=== PATIENT | female | born 1995 | race Caucasian/White ===

== ENCOUNTER → 2019-03-19 09:27 | Outpatient (CLI) | payer OTHER, SELFPAY ==
[2019-03-19 09:22] VITALS: BMI 28.1
--- NOTE | 2019-03-19 09:27 | RAD_ITS ---
STUDY: X-RAY - LEFT SHOULDER REASON FOR EXAM: Chronic shoulder pain. TECHNIQUE: 3 view(s) of the shoulder. COMPARISON: None. FINDINGS: Normal glenohumeral articulation. There is mild elevation of the distal clavicle, possibly secondary to remote acromioclavicular separation. Normal acromion. Normal humeral head and visualized proximal humerus. The soft tissue structures are unremarkable. Normal visualized pulmonary apex. RAD/Shoulder min 2 Views IMPRESSION: Mild elevation of the distal clavicle, possibly from remote acromioclavicular separation. Electronically Signed: Colin Villarreal MD at 10:41 EST Tel , Service support ,
== END ==
PROVIDERS: Family Provider Family Medicine; PCP Family Medicine; Referring Provider Orthopaedic Surgery; Visit Provider Orthopaedic Surgery
DX: M25.512 Pain in left shoulder (principal)
CPT/HCPCS: 73030

== ENCOUNTER → 2019-04-08 11:28 | Outpatient (CLI) | payer OTHER, SELFPAY ==
[2019-03-19 09:22] VITALS: BMI 28.1
--- NOTE | 2019-04-08 11:31 | RAD_ITS ---
CLINICAL HISTORY: Female, 23 years old. Left shoulder instability. PROCEDURE: ARTHROGRAM - LEFT SHOULDER CONSENT: The procedure as well as the benefits and possible complications were explained to the patient. Informed consent was obtained. FLUOROSCOPY TIME (if supplied): (35 seconds) minutes/seconds Injection Information: 10 cc of dilute MRI contrast. Number of images obtained: 3 TECHNIQUE: (All elements of maximal sterile barrier technique followed, including US elements as applicable) The patient was in the supine position. The overlying skin was prepped and draped in usual sterile fashion. Following local anesthetic application and under direct fluoroscopic guidance, a 22-gauge spinal needle was placed into the shoulder joint. 2 cc of Isovue 300 was injected for confirmation. Following this, 10 cc of dilute MRI contrast was injected. The patient tolerated the procedure well. RAD/Arthrogram Shoulder w/ MRI IMPRESSION: Successful intra-articular injection of MR contrast. Electronically Signed: Vijay Mcginnis, at 13:05 EST , Service support ,
--- NOTE | 2019-04-08 11:53 | MRI_ITS ---
STUDY: MR LEFT SHOULDER ARTHROGRAPHY REASON FOR EXAM: Shoulder pain and instability since May, no specific injury. TECHNIQUE: Standardized fat and water weighted pulse sequences were obtained in all 3 orthogonal planes after intra-articular instillation of dilute gadolinium. COMPARISON: Radiographs 03/19/2019. FINDINGS: There is a small low-grade partial thickness tear of the articular surface of the distal supraspinatus tendon (T1 coronal images 11, 12) measuring 0.6 cm in length. Normal infraspinatus tendon. Normal subscapularis tendon. Normal teres minor tendon. Normal supraspinatus muscle. Normal infraspinatus muscle. Normal subscapularis muscle. Normal teres minor muscle. Normal glenohumeral articulation. Normal humeral head and visualized proximal humerus. There is a small linear band of signal in the superior labrum extending into the biceps labral anchor (T1 coronal images 10, 11), either a sublabral recess or SLAP lesion. Normal intracapsular long biceps tendon. Normal anterior inferior labrum. Normal capsulo- ligamentous complex. Normal rotator interval. Normal acromioclavicular articulation. Normal coracoclavicular ligaments. There is a Type II morphology (curved), with a neutral orientation. There is no subacromial-subdeltoid bursal fluid. Normal visualized coracohumeral and coracoacromial ligaments. Normal deltoid muscle. Normal trapezius muscle. MRI/Upper Ext Jt Only W/Contrast IMPRESSION: Small low-grade partial thickness tear of the supraspinatus tendon. Small signal alteration of the superior labrum, either a sublabral recess or SLAP lesion. Electronically Signed: Colin Villarreal MD at 13:49 EST Tel , Service support ,
== END ==
PROVIDERS: Family Provider Family Medicine; PCP Family Medicine; Referring Provider Orthopaedic Surgery; Visit Provider Orthopaedic Surgery
DX: M25.312 Other instability, left shoulder (principal); S43.432A Superior glenoid labrum lesion of left shoulder, initial encounter
CPT/HCPCS: 23350; 73222; 77002; A9575; Q9967

== ENCOUNTER 2019-09-11 05:52 | Day surgery (SDC) | payer OTHER, SELFPAY ==
[2019-06-18 08:13] VITALS: BMI 28.1
[2019-09-03 08:38] VITALS: BMI 28.1
--- NOTE | 2019-09-03 10:12 | HP_ITS ---
Insert H&P no changes I have re-examined the patient. There are no clinical changes since date of exam. Intake Vital Signs 09/03/19 BMI 28.1 Intake Visit Reasons: left shoulder Is patient in pain?: Yes Allergies almond oil Allergy (Verified 03/19/19 09:22) Rash amoxicillin Allergy (Verified 03/19/19 09:22) Rash diphenhydramine HCl [From Benadryl] Allergy (Verified 03/19/19 09:22) Rash Medications NK 09/03/19 [History Confirmed 09/03/19] Is last menstrual period known: Yes Post menopausal: No Patient : No PFSH Social History (Updated 09/03/19 @ 10:[address] Safia Soliz, ) Smoking Status: Never smoker HPI left shoulder: Surgical H&P: Yes Details: Parts of this documentation were recorded by a scribe, this documentation accurately reflects the service provided and the decisions made by me, Dr. Safia Soliz DO 09/03/19 0824. NORMA ROBISON is a 23 year old F here today for F/U on left shoulder. Patient is here today to disscuss her surgery and sign surgery consent since she has failed steroid injection and she has failed PT. Patient coninues to have anterior shoulder pain and weakness with her ROM. Denies numbness, tingling or other associated symptoms. Patient has been off her control. ROS Ubaldo Reports joint pain, Reports limited joint movement, Reports stiffness Skin/Breast Reports system reviewed and no additional complaints, except as docu Neuro Yes system reviewed and no additional complaints, except as docu Ortho Exam Left Shoulder Contralateral Normal: Yes Testing: Yes Hawkin's, Yes Neer's, Yes Speed's, Yes TTP Biceps, Yes Clifford Internal Rotation: L1 Assessment & Plan Problems 1. Superior glenoid labrum lesion of left shoulder, subsequent encounter S43.432D 2. Strain of muscle(s) and tendon(s) of the rotator cuff of left shoulder, subsequent encounter S46.012D Plan Patient educated that since she has failed PT and steroid injection then the next treatment option would be surgery for the SLAP tear from the biceps and partial articular sided rc tear. Patient educated that if her labral tear is to the biceps then she can have a biceps tenotomy vs tenodesis. Patient wishes for the biceps to be moved vs cut. This will be a left shoulder arthroscopy possible RTC repair, subacromial decompression, acromioplasty, open biceps tenodesis and repair as indicated. Patient wishes to proceed with surgery, is on the surgery schedule for 09/11/2019. Reviewed the pre-operative plans with the patient. Risks and benefits of the procedure were fully explained, including but not limited to infection, neurovascular injury, continued pain, arthritis, stiffness, need for further surgery, re-injury, DVT, PE, general risks of anesthesia, and loss of limb or life. The patient understands all the risks and does wish to proceed with written consent. Patient educated that she will get a nerve block and she can have a patch and oral medication for nausea. Educated that she will be tested for COVID-19 the day prior to her surgery, if this is positive then her surgery will be canceled. Recommended a Breg ice machine for post op care, which patient already has but she will have to order a shoulder pad. We discussed the current risk associated COVID-19. While it is understood that there is a community spread of COVID 19 the risk of kamari COVID-19 while at [facility] is very low, however, the risk cannot be completely mitigated because of the community spread of the disease. We discussed in detail the risk of exposure to and or potential harm posed by the COVID-19 virus with having a surgery/procedure at this time versus the risk of delaying the surgery/procedure. Is not possible to know either the risk of delaying the surgery procedure or chance of getting an infection with perfect accuracy, but a joint decision was made to proceed at this time with a schedule surgery/procedure as indicated on the consent form. Patient was notified that we will need to comply with any screening or testing [facility] wishes to perform or that surgery may be delayed for any positive results. Also discussed that I have not been tested and there is a risk associated with this, and if I become symptomatic at anytime I would get tested. Patient aware of risks and wishes to proceed. Follow up 5 days post op for sling and incision check or sooner if pain, swelling, numbness or associated symptoms, or concerns develop. All questions answered. Patient in agreement of plan. Coding Level of Care Code Off vis,est,level 4 Diagnoses Superior glenoid labrum lesion of left shoulder, subsequent encounter S43.432D Strain of muscle(s) and tendon(s) of the rotator cuff of left shoulder, subsequent encounter S46.012D 09/03/19 1012 <Electronically signed by Safia borrego DO> Date _ Safia Soliz DO
[2019-09-11] VITALS (7 sets, daily range): BP systolic 112–124; BP diastolic 66–74; PULSE 63–86; RESP 16; TEMP 36.1–37; O2SAT 97–100; BMI 28.7
[2019-09-11 06:23] LABS: Internal QC Validated? YES +Cl - CLEAR BKGD; Pregnancy, Urine Negative Negative
[2019-09-11] MEDS: Lactated Ringers 1,000 ML 100 ML IV ×2 (06:37→09:31)
--- NOTE | 2019-09-11 07:30 | TESH_PTH ---
PATIENT: NORMA ROBISON [place] [facility] [id number] AGE/SX: 23/F ROOM: RE09/11/[address]: Dr. Safia Soliz DO : 1995 BED: DIS: 09/11/2019 SPEC #: [id number] RECD: 09/11/19 10:14 STATUS: JAZZ ZAHEER #: [id number] ADELA: 09/11/19 07:[address]: Safia Soliz DEPT: SURGICAL PATHOLOGY RECD BY: Vanessa Calix ENTERED: 09/11/19 10:33 SP TYPE: TENDON OTHR DR: Dr. Samson Moyer MD Tissues: Tendon and tendon sheath, NOS Procedures: Surgery Specimen Level III HEADER OPERATION: Shoulder arthroscopy, rotator cuff repair PRE-OP DIAGNOSIS: Superior glenoid labrum lesion of left shoulder; strain of muscles and tendons left rotator cuff TISSUE SUBMITTED: Bicep tendon MICROSCOPIC DIAGNOSIS Bicep tendon: A piece of dense fibroconnective tissue with reactive changes. SAMUEL:crista 09/12/19 MICROSCOPIC DESCRIPTION Slides are reviewed. GROSS DESCRIPTION Received in fixative is one container labeled with the patient's name and designated bicep tendon. The specimen consists of a piece of middleton, indurated tissue measuring 4 x 0.5 x 0.2 cm. The specimen is serially sectioned and submitted entirely in one cassette. / SAMUEL:crista 09/11/19 TC:5 CPT: 86470
[2019-09-11] MEDS: Cefazolin 2 GM in 0.9% Normal Saline 100 ML IV (07:42)
[2019-09-11] MEDS: Mupirocin Ointment 22gm Tube 1 APPLIC (08:05)
--- NOTE | 2019-09-11 09:51 | PCM.DC.ORTHO ---
Discharge Diet: No Restrictions - may remove sling to do pendulums and raise arm overhead, do not actively flex elbow, may remove dressings in 4 days apply Band-Aids to incision sites, call with increased pain numbness tingling further issues arise, may get incision wet after 4 days Discharge Activity: May Not Drive May shower in (days): 1 Ice area for (Minutes): 20 - Every hour while awake. Weight Bearing Status: Weight bearing as tolerated Keep extremity elevated above heart level: Operative Extremity Call your doctor if your incision/area has: Continuous Slow Oozing, Sudden Increased Bleeding, Increased Pain/ Swelling, Increased Redness, Foul Smelling Discharge Call your doctor if you observe: Fever of 101 or Higher, Coldness, Increased Pain, Numbness or Tingling, Change in Color, Calf discomfort Allergies/Adverse Reactions: Allergies almond oil Allergy (Verified 09/11/19 06:17) Rash amoxicillin Allergy (Verified 09/11/19 06:17) Rash diphenhydramine HCl [From Benadryl] Allergy (Verified 09/11/19 06:17) Rash Medications to take at Discharge Etonogestrel/Ethinyl Estradiol [Nuvaring Vaginal Ring] 1 ea VG 09/11/19 Oxycodone HCl/Acetaminophen [Percocet 5/325] 1 - 2 tablet PO Q6H PRN PRN 5 Days #28 tablet 09/11/19 Zolpidem Tartrate [Ambien (Generic)] 5 mg PO QHS PRN PRN #14 tablet 09/11/19 The following prescriptions were given: Zolpidem Tartrate [Ambien (Generic)] 5 mg PO QHS PRN PRN #14 tablet PRN Reason: Insomnia Transmission Status: Sent to [facility] Oxycodone HCl/Acetaminophen [Percocet 5/325] 1 - 2 tablet PO Q6H PRN PRN 5 Days #28 tablet PRN Reason: Pain Transmission Status: Sent to [facility] Primary Care Physician: Samson Moyer MD [Primary Care Provider] - Test Results: Test results from this visit will be discussed in further detail at your follow-up appointment, if applicable. Please Follow Up With: Safia Soliz, DO - [phone]
--- NOTE | 2019-09-11 09:53 | OP.PCM_ITS ---
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 Patient failed conservative treatment and an MRI confirms a possible SLAP tear as well as a leading edge rotator cuff tear. As well as subacromial impingement bursitis. Risk benefits and alternatives were discussed with patient. Risks include not limited to blood loss, blood clot, infection, neurovascular, failure procedure, loss of life and loss of limb. Patient is aware would like proceed with left shoulder arthroscopy repair as indicated. We did discuss options for SLAP treatment repairing it versus cutting it versus an open subpectoral reduce this patient like to proceed with an open biceps puck sub-pec tenodesis. Danielle HALL We discussed the current risk associated COVID-19. While it is understood that there is a community spread of COVID 19 the risk of kamari COVID-19 while at [facility] is very low, however, the risk cannot be completely mitigated because of the community spread of the disease. We discussed in detail the risk of exposure to and or potential harm posed by the COVID-19 virus with having a surgery/procedure at this time versus the risk of delaying the surgery/procedure. Is not possible to know either the risk of delaying the surgery procedure or chance of getting an infection with perfect accuracy, but a joint decision was made to proceed at this time with a schedule surgery/procedure as indicated on the consent form. Patient was notified that we will need to comply with any screening or testing [facility] wishes to perform or that surgery may be delayed for any positive results. Operative note Patient seen and examined preoperative holding area. Left shoulder was marked. Patient received a preoperative regional block. Patient brought to the operating room placed supine on the operating room table. Sign, anesthesia, antibiotics were administered all bony prominences well-padded SCDs placed on her bilateral lower extremity. Patient was placed in beachchair positioning care home through we did recheck her blood pressure which was stable throughout. Left arm was prepped and draped in usual sterile fashion. We then marked out our bony landmarks for portal placement. Timeout was performed. We then insufflated the glenohumeral joint from the posterior aspect. We used a 11 blade to create a create our posterior portal. Began our diagnostic arthroscopy. The glenohumeral joint was unremarkable there is a small indentation in the acromion some thinning in the central area may be due to an i njury at some point without any unstable chondral tissue is more of a indentation in the central aspect of the glenoid. Created an anterior portal under direct visualization. There were no loose bodies in the inferior recess the biceps was then brought into the joint there is a little bit of attenuation of the biceps in the biceps labral junction the anchor at the site of the biceps insertion onto the superior labrum was unstable and had a positive peel off sign. The rotator cuff footprint was intact. The subscap had a leading edge tear and was frayed right at the site of the sling where the biceps goes into the [id number] down to the intra-tubercle notch. We then inspected created anterior portal under direct visualization. We inserted a shaver and debrided back the unstable subscap tear. We did perform a posterior humeral shuck to ensure that the subscap had a good footprint which she did have it was not torn off the footprint. We then truncated the biceps at its insertion and then debrided back the biceps labral junction to a stable labral rim. When irrigated the shoulder the glenohumeral joint moved to the subacromial space. Created a lateral portal under direct visualization. There was extensive bursitis throughout. We performed a subacromial decompression as well as acromioplasty with combination of a shaver and ablator wand bleeding any bleeders that we did see. There was no bursal sided tear. We then moved to our open sub-pec biceps tenodesis. We reprepped the area and we did our allotted 3 minutes. We had marked out our incision for subpectoral tenodesis preoperatively. We then used a 15 blade to cut through skin dissected down with Metzenbaums to the level of the biceps sheath and sheath was excised and the truncated biceps was brought out of the incision. We marked out appropriate length truncated the biceps and sent to pathology for further evaluation. We then whipstitched that the remaining edge of the biceps tendon and placed the stitches through the end of the PEG Arthrex button in standard technique. We then drilled unicortically into the proximal humeral shaft. We placed our pec button flipped the button and then brought the tendon down to bone. We then use a free needle and oversewed the tendon down to the periosteum as well. We then irrigated the incision with copious muscle sterile saline. The incision was closed with deep 3-0 Vicryl and a running 4 Monocryl and the portals were closed with interrupted 4-0 nylon stitches. Sterile dressings were applied. Patient tolerated procedure well no complication transferred recovery room in stable condition Postoperative note May move shoulder as much as possible do not actively flex elbow We will give pictures to family at 2-week postop Call with increased pain numbness tingling further issues arise Follow-up in 2 weeks for suture removal and dressing change Pharmacy has prescriptions This note was generated with [employer] dictation software. It may contain incorrect words, spelling, and punctuation that were not noted in checking the note before signing. This note was generated with [employer] dictation software. It may contain incorrect words, spelling, and punctuation that were not noted in checking the note before signing. Grafts/Implants Used: arthrex pec button system
== END 2019-09-11 12:00 | disposition home or self-care (01) ==
LOC: SDC 05:54 → AC 05:54
PROVIDERS: Anesthesiology; PCP Family Medicine; Referring Provider Orthopaedic Surgery; Visit Provider Orthopaedic Surgery
PROC: (CPT 29827; principal; 2019-09-11 07:10)
DX: S46.012A Strain of muscle(s) and tendon(s) of the rotator cuff of left shoulder, initial encounter (principal); S43.432A Superior glenoid labrum lesion of left shoulder, initial encounter; M75.42 Impingement syndrome of left shoulder; Z11.59 Encounter for screening for other viral diseases; X58.XXXA Exposure to other specified factors, initial encounter; Y93.9 Activity, unspecified; Y92.89 Other specified places as the place of occurrence of the external cause; Y99.8 Other external cause status
CPT/HCPCS: 01716; 23430; 29826; 29827; 81025; 87635; 88304; G2023; J7120; J2405; U0003

== ENCOUNTER 2024-05-27 12:45 | Outpatient (CLI) | payer OTHER, SELFPAY ==
[2024-05-27 12:51] VITALS: BP 128/72; PULSE 89; RESP 16; TEMP 37.2; O2SAT 100
[2024-05-27 13:02] VITALS: BMI 38.0
[2024-05-27 13:08] VITALS: BP 129/80; PULSE 82
[2024-05-27 13:22] VITALS: BP 124/79; PULSE 79
[2024-05-27] MEDS: Acetaminophen 500 MG Tablet 1000 MG PO (13:25)
[2024-05-27 13:31] LABS: Hematocrit 33.6 % (37-47); Hemoglobin 11.1 g/dL (12.0-15.0); Mean Corpuscular Hgb 29.1 pg (27.0-32.0); Mean Corpuscular Volume 88.2 fL (81-99); Mean Platelet Vol. 11.3 fl (6.2-12.0); Platelet Count 250 K/mm3 (150-450); RBC Distribution Width CV 13.1 % (11.6-14.6); RBC Distribution Width SD 42.2 fl (35.1-43.9); Red Blood Count 3.81 M/mm3 (4.2-5.4)
[2024-05-27 13:37] VITALS: BP 124/82; PULSE 75
[2024-05-27 13:41] LABS: Protein, Urine (Random) 28.3 mg/dL (<11.9); Protein:Creat Ratio 218 mg/g CRE (0-200)
[2024-05-27 13:53] VITALS: BP 133/79; PULSE 86
[2024-05-27 13:57] LABS: AST(SGOT) 10 U/L (15-37); Alanine Aminotransfer ALT/SGPT 11 U/L (13-56); Creatinine, Serum 0.45 mg/dL (0.55-1.02); EST Glomerular Filtration Rate 178 mL/min (>60); Est Glom Filt Rate - Afr Amer 215 mL/min (>60); Estimated Creatinine Clearance 248.26 ml/min; Uric Acid 3.4 mg/dL (2.6-6.0)
[2024-05-27 14:07] VITALS: BP 122/72; PULSE 80
--- NOTE | 2024-05-27 14:23 | OB.TRI.NOTE ---
HPI - General General Date of Admission: 05/27/24 Date of Service: 05/27/24 Chief Complaint: Headache, Elevated Blood Pressure HPI Narrative NORMA ROBISON, is a 28 F at 32 weeks and 6 days gestation who presents to labor and delivery with issues of headache and some blurred vision. 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 Patient usually follows with her OB in [facility]. She has felt good movement and denies any contractions or vaginal bleeding. She has not taken anything for her headache since it started a few hours ago. PFSH PFSH Home Medications ?Medication ?Instructions ?Recorded ?Last Taken ?Type aspirin 81 mg capsule 81 mg PO DAILY 05/27/24 05/26/24 History citalopram 20 mg tablet (Celexa) 20 mg PO DAILY 05/27/24 05/26/24 History vit no.133-ferrous 2 tab PO DAILY 05/27/24 05/26/24 History fumarate 28 mg-folic acid 800 mcg tablet () Allergy/AdvReac Type Severity Reaction Status Date / Time oxycodone (From Percocet) Allergy Severe Swelling Verified 05/27/24 13:13 almond oil Allergy Rash Verified 05/27/24 13:00 amoxicillin Allergy Rash Verified 05/27/24 13:00 diphenhydramine HCl (From Allergy Rash Verified 05/27/24 13:00 Benadryl) Social History (Updated 03/12/20 @ 13:[address] Safia Soliz, DO) Smoking Status: Never smoker ROS Constitutional Constitutional: Reports systems reviewed and no addt'l complaints, except as documented Physical Exam Const alert, oriented x3, no apparent distress and healthy appearing General Appearance: cooperative and comfortable HEENT Head and Scalp: normocephalic Neck full ROM Resp normal respiratory effort and no retractions Cardio regular rate GI soft to palpation and non-tender GI Narrative: No epigastric tenderness or right upper quadrant tenderness noted Extremity normal to inspection Skin no rashes or lesions noted Neuro moves all extremities and deep tendon reflexes 2+ bilaterally Neuro Narrative: No clonus NST FHR Rate Baby A NST Reactive:: Yes FHR Category:: Category I Uterine Activity:: No uterine contractions noted Assessment & Plan (1) headache in third trimester: PLAN: 32+ week intrauterine in patient with headache. Headache markedly improved after some Tylenol. No visual changes noted after headache improved. Blood pressures on labor and delivery have all been normal. PIH labs are normal as well. Instructed patient to continue Tylenol as needed for headaches and to return if symptoms worsened and she reports that she has an appointment tomorrow with her OB doctor for an ultrasound.
== END 2024-05-27 14:25 | disposition home or self-care (01) ==
LOC: WPOUT 12:52 → WP 12:53
PROVIDERS: Referring Provider Obstetrics & Gynecology; Visit Provider Obstetrics & Gynecology
DX: O99.891 Other specified diseases and conditions complicating pregnancy (principal); R51.9 Headache, unspecified; R03.0 Elevated blood-pressure reading, without diagnosis of hypertension; Z3A.32 32 weeks gestation of pregnancy
CPT/HCPCS: 36415; 59025; 59050; 82565; 82570; 84156; 84450; 84460; 84550; 85027; 99221; G0378